=== PATIENT | male | born 1965 | race Caucasian/White ===

== ENCOUNTER → 2023-05-29 17:55 | Outpatient (REF) | payer BC, SELFPAY | LOC: RAD 17:55 | PROVIDERS: ATTENDING PHYSICIAN Specialist; FAMILY PHYSICIAN Family Medicine | DX: S05.50XA Penetrating wound with foreign body of unspecified eyeball, initial encounter (principal) | CPT/HCPCS: 70030 ==

== ENCOUNTER 2023-08-22 12:55 | Emergency (ER) | payer BC, SELFPAY ==
[2023-08-22 13:04] VITALS: BP 153/84
[2023-08-22 13:21] LABS: % Basophils 0.3 % (0-2); % Eosinophils 0.7 % (0-6); % Immature Granulocytes 0.7 % (0-0.5); % Lymphocytes 16.8 % (20.5-51.1); % Monocytes 9.9 % (1.7-9.3); % Neutrophils 71.6 % (42.2-75.2); Absolute Eosinophils 0.1 10^3/uL (0-0.7); Absolute Immature Granulocytes 0.1 10^3/uL (0-0.05); Absolute Lymphocytes 2.6 10^3/uL (1.2-3.4); Absolute Monocytes 1.5 10^3/uL (0.1-0.6); Absolute Neutrophils 10.9 10^3/uL (1.4-6.5); Hematocrit 45.1 % (39.0-52.0); Hemoglobin 15.8 g/dL (13.0-18.0); Mean Corpuscular Hgb 32.2 pg (27.0-31.0); Mean Corpuscular Volume 91.9 fL (80.0-94.0); Mean Platelet Volume 9.8 fL (7.4-10.4); Nucleated Red Blood Cells % 0 % (-); Platelet Count 206 10^3/uL (130-400); Red Blood Cell Count 4.91 10^6/uL (4.70-6.10); Red Cell Dist. Width 12.9 % (11.5-14.5); White Blood Cell Count 15.2 10^3/uL (4.8-10.8)
[2023-08-22 13:35] LABS: ALT (SGPT) 64 U/L (0-50); AST (SGOT) 42 U/L (17-59); Albumin 4.6 g/dl (3.5-5.0); Alkaline Phosphatase 93 U/L (38-126); Blood Urea Nitrogen 18 mg/dl (9-20); Calcium 9.6 mg/dl (8.4-10.2); Carbon Dioxide 26 mmol/L (22-30); Chloride 105 mmol/L (98-107); Glucose 98 mg/dl (70-99); Potassium 4.6 mmol/L (3.5-5.1); Sodium 134 mmol/L (135-145); Total Bilirubin 0.5 mg/dl (0.2-1.3); Total Protein 7.4 g/dl (6.3-8.2); eGFR > 60.00
[2023-08-22 13:42] VITALS: BMI 32.9
--- NOTE | 2023-08-22 14:10 | ED.GENMED ---
History of Present Illness
<Marry Mckeon PA-C - Last Filed: 08/23/23 22:18>
General
Chief Complaint: Flank Pain
Source: patient
Exam Limitations: none
Time Seen by Provider: 08/22/23 13:51
Nursing documentation reviewed up to this point in time: agreed with
Travel History
Have you had any contact with someone who has COVID-19?: No
Do you have any symptoms of coronavirus? Fever > 100 degrees, chills, cough, shortness of breath, sore throat, loss of taste or smell, muscle aches, or headache?: No
History of Present Illness
History of Present Illness:
Patient is a 57-year-old male with history hypertension presenting for evaluation of acute onset right flank pain. Patient states symptoms started acutely last night and have been intermittent since. He describes a sharp pain that radiates from
right flank into the right groin. Patient denies any fever, chills, nausea, vomiting, or abdominal pain. He denies any urinary symptoms. Patient specifically denies any testicular pain.
Patient was seen by his primary care provider this morning and referred to the emergency department for further evaluation and imaging to rule out kidney stone.
Of note- patient does report recent 5 day course of steroids which he completed about 4 days ago for a left lower back strain.
Phy Exam
<Marry Mckeon PA-C - Last Filed: 08/23/23 22:18>
Physical Exam
Physical Exam:
Vitals: Patient's vital signs are stable
General: Patient is well appearing, no acute distress
Skin: Warm and dry, no rashes or lesions
Head: Normocephalic, atraumatic
Eyes: Sclera nonicteric. EOMs intact. No nystagmus.
Throat: Protecting airway
Neck: Normal ROM, no cervical spine tenderness, no meningismus
Cardiac: Regular rate and rhythm, no murmurs.
Pulm: Normal respiratory effort, no wheezes, rales, rhonchi heard on exam.
Abdomen: Soft, nontender in all four quadrants, no tenderness at McBurneys point. Nondistended.
Back: No reproducible tenderness. No midline spinal tenderness. No CVA tenderness bilaterally. No rashes or bruising. Negative straight leg raise on right side
Extremities: No evidence of cyanosis or edema
Neuro: AAOx3. CN II-XII intact. No focal neurologic deficits.
Psychiatric: Normal affect.
Course
<Marry Mckeon PA-C - Last Filed: 08/23/23 22:18>
Orders/Labs/Results
Orders:
Orders
08/22/23 13:14
Complete Blood Count/With Diff Urgent
Comprehensive Metabolic Panel Urgent
08/22/23 14:17
Urinalysis Reflex To Culture Urgent
Date Specimen was Collected: 08/22/23
Time Specimen was Collected: 14:15
Urine Microscopic Reflex Cult Urgent
08/22/23 14:21
CT Abd/pel Without Iv Or Oral Urgent
Comment:
Reason For Exam: Right flank pain
08/22/23 17:06
Ketorolac [Toradol] 15 mg IM NOW STA
Abnormal Lab Results
08/22/23 08/22/23
13:14 14:17
WBC 15.2 H 10^3/uL
(4.8-10.8)
MCH 32.2 H pg
(27.0-31.0)
Abs Immat Gran (auto) 0.1 H 10^3/uL
(0-0.05)
Absolute Neuts (auto) 10.9 H 10^3/uL
(1.4-6.5)
Absolute Monos (auto) 1.5 H 10^3/uL
(0.1-0.6)
Immature Gran % 0.7 H %
(0-0.5)
Lymphocytes % 16.8 L %
(20.5-51.1)
Monocytes % 9.9 H %
(1.7-9.3)
Sodium 134 L mmol/L
(135-145)
ALT 64 H U/L
(0-50)
Ur Occult Blood Reflex 4+ A
(Negative)
Urine Bacteria (Reflex) Few A
(Negative)
08/22/23 13:14
08/22/23 13:14
Vital Signs
Initial and Last Documented VS:
Initial Vital Signs
Temp Pulse Resp BP Pulse Ox
98.2 F 92 20 153/84 97
08/22/23 13:04 08/22/23 13:04 08/22/23 13:04 08/22/23 13:04 08/22/23 13:04
Last Documented Vital Signs
Temp Pulse Resp BP Pulse Ox
98.2 F 80 18 148/86 98
08/22/23 13:04 08/22/23 17:03 08/22/23 17:03 08/22/23 17:03 08/22/23 17:03
Ibrahimalt;Rashard Escoto, DO - Last Filed: 08/22/23 14:48>
Orders/Labs/Results
Orders:
Orders
08/22/23 13:14
Complete Blood Count/With Diff Urgent
Comprehensive Metabolic Panel Urgent
08/22/23 14:17
Urinalysis Reflex To Culture Urgent
Date Specimen was Collected: 08/22/23
Time Specimen was Collected: 14:15
Urine Microscopic Reflex Cult Urgent
08/22/23 14:21
CT Abd/pel Without Iv Or Oral Urgent
Comment:
Reason For Exam: Right flank pain
08/22/23 17:06
Ketorolac [Toradol] 15 mg IM NOW STA
Abnormal Lab Results
08/22/23 08/22/23
13:14 14:17
WBC 15.2 H 10^3/uL
(4.8-10.8)
MCH 32.2 H pg
(27.0-31.0)
Abs Immat Gran (auto) 0.1 H 10^3/uL
(0-0.05)
Absolute Neuts (auto) 10.9 H 10^3/uL
(1.4-6.5)
Absolute Monos (auto) 1.5 H 10^3/uL
(0.1-0.6)
Immature Gran % 0.7 H %
(0-0.5)
Lymphocytes % 16.8 L %
(20.5-51.1)
Monocytes % 9.9 H %
(1.7-9.3)
Sodium 134 L mmol/L
(135-145)
ALT 64 H U/L
(0-50)
Ur Occult Blood Reflex 4+ A
(Negative)
Urine Bacteria (Reflex) Few A
(Negative)
08/22/23 13:14
08/22/23 13:14
Vital Signs
Initial and Last Documented VS:
Initial Vital Signs
Temp Pulse Resp BP Pulse Ox
98.2 F 92 20 153/84 97
08/22/23 13:04 08/22/23 13:04 08/22/23 13:04 08/22/23 13:04 08/22/23 13:04
Last Documented Vital Signs
Temp Pulse Resp BP Pulse Ox
98.2 F 80 18 148/86 98
08/22/23 13:04 08/22/23 17:03 08/22/23 17:03 08/22/23 17:03 08/22/23 17:03
<Marry Mckeon PA-C - Last Filed: 08/23/23 22:18>
MDM/Problems Addressed
Differential Diagnosis Includes:
Not limited to: Kidney stone, pyelonephritis, UTI, hernia, muscular strain/spasm, sciatica
MDM/Problems Addressed:
Patient is a 57-year-old male presenting for evaluation of acute onset right flank pain. No fever, chills, urinary symptoms. No nausea, vomiting. Sent by PCP for CT scan to rule out kidney stone. Vitals are stable. Patient is afebrile. Exam as
above. Patient is well-appearing, nontoxic. Abdomen is soft and nontender. No reproducible tenderness right lower back or CVA tenderness. Straight leg test was negative. Labs obtained in triage show leukocytosis of 15.2. I do believe this to
be attributed to his recent steroid course. Otherwise no clinically significant abnormalities. Will check urinalysis, noncontrast CT abdomen/pelvis. Patient declines any analgesia at this time.
Urine does show 4+ blood. No evidence of infection. This will be sent for culture. CT pending.
CT shows 5 mm obstructing stone at right UPJ. Also incidental finding of right coronary artery calcification on CT scan. Patient made aware and will follow-up with cardiology. Patient is extremely well-appearing, I think trial of passage of stone
at home is reasonable. Discussed with urology on-call�who agrees with plan. They will see him in office early next week. Patient given dose of Toradol prior to discharge. Stable for discharge with NSAIDs for pain, Oxy as needed, Flomax. Return
precautions discussed at length. Patient comfortable this plan. All questions answered.
Chronic conditions affecting care:
Hypertension
Acute Exacerbation and/or Progression of Chronic Illness:
Acutely hypertensive
<Marry Mckeon PA-C - Last Filed: 08/23/23 22:18>
*Radiology
Radiology exam reviewed: preliminary read by ED provider and radiology read reviewed
*Pulse Oximetry
Patient hypoxic: no
*EKG
Interpreted by ED Provider?: NA
*Failure Analysis Technician Interpretation
Rate: Failure Analysis Technician- N/A
*Critical Care Note
Total Time (30-74mins, 75-104mins- exclusive of procedures): Not Applicable
<Marry Mckeon PA-C - Last Filed: 08/23/23 22:18>
Patient Management
Discussion with other providers: Room Service Attendant (Urology-Dr. Henderson)
ED Attending Note
<Marry Mckeon PA-C - Last Filed: 08/23/23 22:18>
-
Portions of this chart may have been created with voice recognition software.� Occasional wrong word or��sound alike� substitutions may have occurred due to the inherent limitations of voice recognition software.
<Rashard Escoto DO - Last Filed: 08/22/23 14:48>
ED Attending Note
Patient seen and examined by attending physician: Yes
I performed the substantive portion of visit, reviewed & personally made and approve the management plan that is documented in note by myself or BIANCA.: Yes
I performed a history and physical exam of patient and discussed management with resident, I reviewed resident's note and agree with documented findings and plan of care.: Yes
ED Attending Note:
I evaluated the patient at bedside. The patient has relatively abrupt onset right flank pain with some radiation toward the right proximal anterior thigh. He declines analgesia. He was sent here by his primary care doctor. Leukocytosis explained
by recent steroid use. He does have 4+ blood.
Discharge Plan
Departure
Patient Disposition: Home (Routine Discharge)
Date of Disposition: 08/22/23
Time of Disposition: 16:49
Patient with high blood pressure during this ER visit?: Yes
Condition: Good
Covid-19: Not Applicable
Discharge Problem:
Calculus of proximal right ureter
Instructions: How to Strain Your Urine, Kidney Stone, Adult ED
Prescriptions:
New
tamsulosin [Flomax] 0.4 mg capsule
0.4 mg PO DAILY 7 Days Qty: 7 0RF
oxycodone 5 mg tablet
5 mg PO Q6H PRN (Reason: Pain) Qty: 7 0RF
No Action
amlodipine-benazepril 1 EACH capsule
1 ea PO DAILY
montelukast 10 MG tablet
10 mg PO QPM
fluticasone propionate 1 SPRAY spray,suspension
1 mcg intranasal HS
acetaminophen 325 MG tablet
325 mg PO PRN PRN (Reason: sinus pressure)
doxycycline hyclate 100 MG capsule
100 mg PO BID 14 Days Qty: 28 0RF
prednisone 10 MG tablet
10 mg PO DAILY 25 Days Qty: 45 0RF
Rx Instructions:
30mg PO daily x 5 days, then 20 mg PO daily x 10 days then 10 mg PO daily x 10 days then d/c, start October 01
hydrocodone-acetaminophen 1 TABLET tablet
1 - 2 tab PO Q4HPRN PRN (Reason: Mod-severe pain) 7 Days Qty: 30 0RF
Referrals:
Geraldo Parra MD [Active] - Call in 1-3 days for appt
Donovan Henderson MD [Active] - Next open appointment
Minor Adams DO [Family Provider] -
Activity Restrictions/Additional Instructions:
-Return to the emergency department with any high fevers, severe abdominal pain, intractable nausea/vomiting, intractable pain, confusion, weakness, worsening in current symptoms, or any other concerns
-Your prescriptions have been sent to your pharmacy. A prescription for tamsulosin has been sent you should take this daily for the next 7 days or until you pass the stone.
-You should take qmrk-toj-ranbvdj Motrin as needed for comfort. A prescription for oxycodone has been sent to your pharmacy for severe pain. This may cause drowsiness he should not take prior to driving.
-Is important that he stay well-hydrated. You should strain your urine.
-You should follow-up with urology within the next 1 week to ensure symptoms improving/for further management. Contact information has been provided for you above
-As discussed�there is some calcification seen in one of your coronary arteries on CT scan today. You should follow-up with cardiology for further evaluation/management. Return to the emergency department with any chest pain or shortness of breath.
Interventions
Interventions:
*Risk Screen - Suicide Last Done: 08/22/23 13:43
*General Assessment Last Done: 08/22/23 13:43
*Neglect/Abuse Screening Last Done: 08/22/23 13:43
*ED COVID-19 Vaccine History Last Done: 08/22/23 13:04
*Nursing Disposition Last Done: 08/22/23 17:43
HO-Adzfgv-Ajhjruhgsh Assessment Last Done: 08/22/23 13:43
ED-Male Genitourinary Assessment Last Done: 08/22/23 13:43
Discharge Date and Time
Discharge Date/Time: 08/22/23 17:43
Print Language: ITALIAN
[2023-08-22 14:29] LABS: Urine Albumin Negative (Neg - Trace); Urine Bilirubin Negative (Negative); Urine Character Clear (Clear); Urine Color Straw; Urine Glucose Negative (Negative); Urine Ketone Negative (Negative); Urine Leukocyte Negative (Negative); Urine Nitrite Negative (Negative); Urine Occult Blood 4+ (Negative); Urine Urobilinogen Negative (Neg - 1+)
[2023-08-22 14:40] LABS: Urine Bacteria Few (Negative)
[2023-08-22 14:41] LABS: Urine Red Blood Cell 0-2 /HPF (0-2)
[2023-08-22 17:03] VITALS: BP 148/86
[2023-08-22] MEDS: TORADOL 15 MG IM (17:10)
== END 2023-08-22 17:43 | disposition home or self-care (01) ==
LOC: EMR 12:55
PROVIDERS: Emergency Medicine; Physician Assistant; EMERGENCY PHYSICIAN Emergency Medicine; FAMILY PHYSICIAN Family Medicine
DX: N20.1 Calculus of ureter (principal); I10 Essential (primary) hypertension; Z87.442 Personal history of urinary calculi
CPT/HCPCS: 99284; 96372; 74176; 80053; 81003; 81015; 85025

== ENCOUNTER → 2023-08-25 14:11 | Emergency (ER) | payer BC, SELFPAY ==
[2023-08-25 14:18] VITALS: BP 148/102
[2023-08-25 14:33] LABS: % Basophils 0.3 % (0-2); % Eosinophils 0.3 % (0-6); % Immature Granulocytes 0.5 % (0-0.5); % Lymphocytes 8.9 % (20.5-51.1); % Monocytes 10.4 % (1.7-9.3); % Neutrophils 79.6 % (42.2-75.2); Absolute Immature Granulocytes 0.1 10^3/uL (0-0.05); Absolute Lymphocytes 1.4 10^3/uL (1.2-3.4); Absolute Monocytes 1.6 10^3/uL (0.1-0.6); Absolute Neutrophils 12.3 10^3/uL (1.4-6.5); Hematocrit 44.1 % (39.0-52.0); Hemoglobin 15.6 g/dL (13.0-18.0); Mean Corp Hgb Conc. 35.4 g/dL (33.0-37.0); Mean Corpuscular Hgb 32.4 pg (27.0-31.0); Mean Corpuscular Volume 91.7 fL (80.0-94.0); Nucleated Red Blood Cells % 0 % (-); Platelet Count 168 10^3/uL (130-400); Red Blood Cell Count 4.81 10^6/uL (4.70-6.10); Red Cell Dist. Width 12.6 % (11.5-14.5); White Blood Cell Count 15.5 10^3/uL (4.8-10.8)
[2023-08-25 14:52] LABS: ALT (SGPT) 38 U/L (0-50); AST (SGOT) 26 U/L (17-59); Albumin 4.4 g/dl (3.5-5.0); Alkaline Phosphatase 81 U/L (38-126); Blood Urea Nitrogen 13 mg/dl (9-20); Calcium 9.4 mg/dl (8.4-10.2); Carbon Dioxide 25 mmol/L (22-30); Chloride 102 mmol/L (98-107); Glucose 118 mg/dl (70-99); Lipase 85 U/L (23-300); Potassium 4.1 mmol/L (3.5-5.1); Sodium 136 mmol/L (135-145); Total Protein 7.3 g/dl (6.3-8.2); eGFR > 60.00
--- NOTE | 2023-08-25 15:03 | ED.GENMED ---
History of Present Illness
<Marry Mckeon PA-C - Last Filed: 08/25/23 18:39>
General
Chief Complaint: Flank Pain
Source: patient
Exam Limitations: none
Time Seen by Provider: 08/25/23 14:42
Nursing documentation reviewed up to this point in time: agreed with
Travel History
Have you had any contact with someone who has COVID-19?: No
Do you have any symptoms of coronavirus? Fever > 100 degrees, chills, cough, shortness of breath, sore throat, loss of taste or smell, muscle aches, or headache?: No
History of Present Illness
History of Present Illness:
Patient is a 57-year-old male presenting for evaluation of intractable pain and constipation with known kidney stone. Patient was seen in the emergency department here 3 days ago and diagnosed with a 5 mm obstructing calculus at the right UPJ. He
was discharged with pain control, Flomax, urology follow-up. Patient states that over the weekend the pain has become more severe and constant. He does believe that pain has started to move slightly. He also reports that he has not had a bowel
movement since . He has tried MiraLAX and senna without any relief. He did have 1 episode of vomiting last night. Patient states that he has been straining his urine but does not believe that he passed stone yet.
Patient has been taking Tylenol at home. He did try 1 dose of oxycodone which did not provide any relief. Patient denies any fever, chills, chest pain, or shortness of breath.
Phy Exam
<Marry Mckeon PA-C - Last Filed: 08/25/23 18:39>
Physical Exam
Physical Exam:
Vitals: Patient's vital signs are stable
General: Patient is in moderate distress due to pain; nontoxic appearing
Skin: Warm and dry, no rashes or lesions
Head: Normocephalic, atraumatic
Eyes: Sclera nonicteric. EOMs intact. No nystagmus.
Throat: Protecting airway
Neck: Normal ROM, no cervical spine tenderness, no meningismus
Cardiac: Regular rate and rhythm, no murmurs.
Pulm: Normal respiratory effort, no wheezes, rales, rhonchi heard on exam.
Abdomen: Mild abdominal distention. Abdomen soft, nontender. No CVA tenderness
Rectal: No stool in rectal vault
Extremities: No evidence of cyanosis or edema. DP pulses palpable and equal bilaterally.
Neuro: AAOx3. CN II-XII intact. No focal neurologic deficits.
Psychiatric: Normal affect.
Course
<Marry Mckeon PA-C - Last Filed: 08/25/23 18:39>
Orders/Labs/Results
Orders:
Orders
08/25/23 14:25
Complete Blood Count/With Diff Urgent
Comprehensive Metabolic Panel Urgent
Lipase Urgent
08/25/23 15:04
0.9% Sodium Chloride 1000 ml [Nss] 1,000 ml IV BOLUS
Ketorolac [Toradol] 15 mg IV NOW STA
08/25/23 15:28
Urinalysis Reflex To Culture Urgent
Date Specimen was Collected: 08/25/23
Time Specimen was Collected: 14:20
Urine Microscopic Reflex Cult Urgent
08/25/23 15:39
Phosphate Enema [Fleet Phosphate Enema-Adult] 135 ml RECTAL NOW STA
08/25/23 15:40
Morphine Sulfate 6 mg IV NOW STA
Abnormal Lab Results
08/25/23 08/25/23
14:25 15:28
WBC 15.5 H 10^3/uL
(4.8-10.8)
MCH 32.4 H pg
(27.0-31.0)
Abs Immat Gran (auto) 0.1 H 10^3/uL
(0-0.05)
Absolute Neuts (auto) 12.3 H 10^3/uL
(1.4-6.5)
Absolute Monos (auto) 1.6 H 10^3/uL
(0.1-0.6)
Neutrophils % 79.6 H %
(42.2-75.2)
Lymphocytes % 8.9 L %
(20.5-51.1)
Monocytes % 10.4 H %
(1.7-9.3)
Glucose 118 H mg/dl
(70-99)
Ur Occult Blood Reflex 3+ A
(Negative)
Urine RBC 7-10 A /HPF
(0-2)
Urine Bacteria (Reflex) Few A
(Negative)
08/25/23 14:25
08/25/23 14:25
Vital Signs
Initial and Last Documented VS:
Initial Vital Signs
Temp Pulse Resp BP Pulse Ox
99.0 F 98 16 148/102 97
08/25/23 14:18 08/25/23 14:18 08/25/23 14:18 08/25/23 14:18 08/25/23 14:18
Last Documented Vital Signs
Temp Pulse Resp BP Pulse Ox
98.4 F 97 20 127/97 93
08/25/23 17:55 08/25/23 17:55 08/25/23 17:55 08/25/23 17:55 08/25/23 17:55
<Marielos Mcgregor MD - Last Filed: 08/25/23 15:42>
Orders/Labs/Results
Orders:
Orders
08/25/23 14:25
Complete Blood Count/With Diff Urgent
Comprehensive Metabolic Panel Urgent
Lipase Urgent
08/25/23 15:04
0.9% Sodium Chloride 1000 ml [Nss] 1,000 ml IV BOLUS
Ketorolac [Toradol] 15 mg IV NOW STA
08/25/23 15:28
Urinalysis Reflex To Culture Urgent
Date Specimen was Collected: 08/25/23
Time Specimen was Collected: 14:20
Urine Microscopic Reflex Cult Urgent
08/25/23 15:39
Phosphate Enema [Fleet Phosphate Enema-Adult] 135 ml RECTAL NOW STA
08/25/23 15:40
Morphine Sulfate 6 mg IV NOW STA
Abnormal Lab Results
08/25/23 08/25/23
14:25 15:28
WBC 15.5 H 10^3/uL
(4.8-10.8)
MCH 32.4 H pg
(27.0-31.0)
Abs Immat Gran (auto) 0.1 H 10^3/uL
(0-0.05)
Absolute Neuts (auto) 12.3 H 10^3/uL
(1.4-6.5)
Absolute Monos (auto) 1.6 H 10^3/uL
(0.1-0.6)
Neutrophils % 79.6 H %
(42.2-75.2)
Lymphocytes % 8.9 L %
(20.5-51.1)
Monocytes % 10.4 H %
(1.7-9.3)
Glucose 118 H mg/dl
(70-99)
Ur Occult Blood Reflex 3+ A
(Negative)
Urine RBC 7-10 A /HPF
(0-2)
Urine Bacteria (Reflex) Few A
(Negative)
08/25/23 14:25
08/25/23 14:25
Vital Signs
Initial and Last Documented VS:
Initial Vital Signs
Temp Pulse Resp BP Pulse Ox
99.0 F 98 16 148/102 97
08/25/23 14:18 08/25/23 14:18 08/25/23 14:18 08/25/23 14:18 08/25/23 14:18
Last Documented Vital Signs
Temp Pulse Resp BP Pulse Ox
98.4 F 97 20 127/97 93
08/25/23 17:55 08/25/23 17:55 08/25/23 17:55 08/25/23 17:55 08/25/23 17:55
<Marry Mckeon PA-C - Last Filed: 08/25/23 18:39>
MDM/Problems Addressed
Differential Diagnosis Includes:
Not limited to: Kidney stone, infected kidney stone, constipation, traction
MDM/Problems Addressed:
Patient is a 49-year-old male with known 5 mm UPJ stone presenting for intractable pain and constipation. He has been taking Tylenol at home, misunderstood instructions to take NSAIDs. No bowel movement in 2 days. No fever, chills. Patient is
hypertensive�likely due to pain. Otherwise vital signs stable. Exam as above. He is uncomfortable due to pain, but nontoxic-appearing. He is not tachycardic, hypotensive or febrile to suggest sepsis. Abdomen soft and nontender. Labs obtained
in triage show stable leukocytosis to 15.5�likely attributable to recent course of steroids. Otherwise no clinically significant abnormalities. Creatinine is stable at 0.9. No evidence of renal insufficiency. Will check UA for signs of
infection. Toradol for pain. IV fluids. Enema for constipation. No indication for further imaging at this time. Will monitor closely and reassess.
Patient with significant improvement in pain following Toradol. Declines further analgesia at this time. Fleet enema given with very small bowel movement but patient able to release flatulence and feels less bloated at this time.
Urinalysis shows absolutely no signs of infection.
Given patient is well-appearing with no signs of infection today in emergency department�I feel that it is reasonable for discharge home with appropriate pain management, follow-up with urology tomorrow at 1:30 with scheduled appointment. Patient
would prefer to go home. Discussed with urology, Dr. Sommer, who agrees. Return precautions discussed at length. Recommend magnesium citrate at home to help with constipation. Ibuprofen/Motrin as needed for pain. He will follow-up with
urology, Dr. Henderson at 130 tomorrow.
Chronic conditions affecting care:
Kidney stone
Acute Exacerbation and/or Progression of Chronic Illness:
Intractable pain due to known kidney stone.
<Marry Mckeon PA-C - Last Filed: 08/25/23 18:39>
*Pulse Oximetry
Patient hypoxic: no
*EKG
Interpreted by ED Provider?: NA
*Pure Pak Machine Operator Interpretation
Rate: Pure Pak Machine Operator- N/A
*Critical Care Note
Total Time (30-74mins, 75-104mins- exclusive of procedures): Not Applicable
<Marry Mckeon PA-C - Last Filed: 08/25/23 18:39>
Patient Management
Discussion with other providers: Frame Aligner (Urology-Dr. Sommer)
ED Attending Note
<Marry Mckeon PA-C - Last Filed: 08/25/23 18:39>
-
Portions of this chart may have been created with voice recognition software.� Occasional wrong word or��sound alike� substitutions may have occurred due to the inherent limitations of voice recognition software.
<Marielos Mcgregor MD - Last Filed: 08/25/23 15:42>
ED Attending Note
Patient seen and examined by attending physician: Yes
I performed the substantive portion of visit, reviewed & personally made and approve the management plan that is documented in note by myself or BIANCA.: Yes
ED Attending Note:
57-year-old male presents emergency department with recurrent/continued pain in the right flank area which will radiate down to the right groin. Patient was diagnosed with a kidney stone, UP junction on the right side measuring 5 mm on .
Since that time he has been taking Tylenol and 1 oxycodone without relief of symptoms. He misunderstood in regards to instructions to take NSAIDs. Secondarily, patient describes constipation and has not had a bowel movement in 2 days. He had
small bowel movements on . He is still eating but notes mild anorexia. He is not nauseous at this time. He describes 'spitting up', but not actual real emesis. He denies fever, chills, dysuria, urgency, frequency, retention, hematuria.
On exam, patient is uncomfortable, pleasant, nontoxic. Abdomen soft and nontender, normal active bowel sounds noted. Will administer enema for constipation. Meds for kidney stone related pain, rule out infection. No fever noted here, not
hypotensive or tachycardic to suggest sepsis, UA pending.
Discharge Plan
Departure
Patient Disposition: Home (Routine Discharge)
Date of Disposition: 08/25/23
Time of Disposition: 17:45
Patient with high blood pressure during this ER visit?: Yes
Condition: Good
Covid-19: Not Applicable
Discharge Problem:
Right ureteral stone, Constipation
Instructions: Kidney Stones (DC), BLOOD PRESSURE
Prescriptions:
No Action
amlodipine-benazepril 1 EACH capsule
1 ea PO DAILY
montelukast 10 MG tablet
10 mg PO QPM
fluticasone propionate 1 SPRAY spray,suspension
1 mcg intranasal HS
acetaminophen 325 MG tablet
325 mg PO PRN PRN (Reason: sinus pressure)
doxycycline hyclate 100 MG capsule
100 mg PO BID 14 Days Qty: 28 0RF
prednisone 10 MG tablet
10 mg PO DAILY 25 Days Qty: 45 0RF
Rx Instructions:
30mg PO daily x 5 days, then 20 mg PO daily x 10 days then 10 mg PO daily x 10 days then d/c, start October 01
hydrocodone-acetaminophen 1 TABLET tablet
1 - 2 tab PO Q4HPRN PRN (Reason: Mod-severe pain) 7 Days Qty: 30 0RF
tamsulosin [Flomax] 0.4 mg capsule
0.4 mg PO DAILY 7 Days Qty: 7 0RF
oxycodone 5 mg tablet
5 mg PO Q6H PRN (Reason: Pain) Qty: 7 0RF
Referrals:
Donovan Henderson MD [Active] - Tomorrow
Minor Adams DO [Family Provider] -
Activity Restrictions/Additional Instructions:
- Return to the emergency department with any high fevers, chills, severe abdominal pain, intractable nausea/vomiting, intractable pain, worsening in current symptoms, or any other concerns
-You should take 600 mg of ibuprofen/Motrin every 6 hours as needed for pain. You can take oxycodone as needed for severe pain. You should continue to take tamsulosin and strain your urine. It is important to stay well-hydrated
-You can try magnesium citrate to help constipation. You should drink a full 6-8 ounces of water after magnesium citrate.
-As discussed�it is imperative that you keep your appointment with Dr. Henderson, urology, tomorrow for further evaluation/management. Return to emergency department any acute worsening
Interventions
Interventions:
*Risk Screen - Suicide Last Done: 08/25/23 14:15
*General Assessment Last Done: 08/25/23 14:15
*Neglect/Abuse Screening Last Done: 08/25/23 14:15
*ED COVID-19 Vaccine History Last Done: 08/25/23 14:15
XM-Jsesnh-Acggxrjggq Assessment Last Done: 08/25/23 18:20
ED-Male Genitourinary Assessment Last Done: 08/25/23 18:20
Discharge Date and Time
Print Language: FINNISH
[2023-08-25 15:17] VITALS: BMI 32.3
[2023-08-25] MEDS: NSS 1000 IV (15:26)
[2023-08-25] MEDS: TORADOL 15 MG IV (15:26)
[2023-08-25 16:08] LABS: Urine Albumin Negative (Neg - Trace); Urine Bilirubin Negative (Negative); Urine Character Clear (Clear); Urine Color Yellow; Urine Glucose Negative (Negative); Urine Ketone Negative (Negative); Urine Leukocyte Negative (Negative); Urine Nitrite Negative (Negative); Urine Occult Blood 3+ (Negative); Urine Specific Gravity 1.015 (<1.030); Urine Urobilinogen Negative (Neg - 1+)
[2023-08-25 16:23] LABS: Urine White Cell 0-2 /HPF (0-5)
[2023-08-25 16:24] LABS: Urine Bacteria Few (Negative)
[2023-08-25] MEDS: MORPHINE SULFATE 6 MG IV (16:36)
[2023-08-25] MEDS: FLEET PHOSPHATE ENEMA-ADULT 135 ML RECTAL (16:37)
[2023-08-25 17:55] VITALS: BP 127/97
== END | disposition home or self-care (01) ==
LOC: EMR 14:11
PROVIDERS: Emergency Medicine; EMERGENCY PHYSICIAN Emergency Medicine; FAMILY PHYSICIAN Family Medicine
DX: R10.9 Unspecified abdominal pain (principal); K59.00 Constipation, unspecified
CPT/HCPCS: 99283; 96374; 96375; 96361; 80053; 81003; 81015; 83690; 85025

== ENCOUNTER → 2023-08-29 15:20 | Outpatient (REF) | payer BC, SELFPAY | LOC: CLAB 15:20 | PROVIDERS: ATTENDING PHYSICIAN Surgery | DX: N13.2 Hydronephrosis with renal and ureteral calculous obstruction (principal) | CPT/HCPCS: 82365 ==

== ENCOUNTER → 2023-12-25 15:33 | Outpatient (REF) | payer BC, SELFPAY | LOC: HWRCS 15:33 | PROVIDERS: ATTENDING PHYSICIAN Internal Medicine; FAMILY PHYSICIAN Family Medicine | DX: I25.10 Atherosclerotic heart disease of native coronary artery without angina pectoris (principal); R00.2 Palpitations; I10 Essential (primary) hypertension; R06.09 Other forms of dyspnea; R60.0 Localized edema | CPT/HCPCS: 93306 ==

== ENCOUNTER → 2023-12-31 07:36 | Outpatient (REF) | payer BC, SELFPAY | LOC: DHCBC/DCA 07:36 | PROVIDERS: ATTENDING PHYSICIAN Internal Medicine; FAMILY PHYSICIAN Family Medicine | DX: I25.10 Atherosclerotic heart disease of native coronary artery without angina pectoris (principal); R00.2 Palpitations; I10 Essential (primary) hypertension; R06.09 Other forms of dyspnea; R60.0 Localized edema | CPT/HCPCS: 78452; 93017; A9500 ==

== ENCOUNTER → 2024-03-26 17:55 | Outpatient (REF) | payer BC, SELFPAY | LOC: RAD 17:55 | PROVIDERS: ATTENDING PHYSICIAN Surgery; FAMILY PHYSICIAN Family Medicine | DX: R10.9 Unspecified abdominal pain (principal) | CPT/HCPCS: 74018 ==

== ENCOUNTER → 2024-04-01 09:14 | Outpatient (REF) | payer BC, SELFPAY | LOC: HWRAD 09:14 | PROVIDERS: ATTENDING PHYSICIAN Surgery; FAMILY PHYSICIAN Family Medicine | DX: R10.9 Unspecified abdominal pain (principal) | CPT/HCPCS: 76775 ==